=== PATIENT | female | born 1970 | race Caucasian/White ===

== ENCOUNTER → 2017-07-06 | Outpatient (CLI) | payer OTHER | LOC: FIMAGING 15:29 | PROVIDERS: ATTEND Obstetrics & Gynecology | DX: Z12.31 Encounter for screening mammogram for malignant neoplasm of breast (principal) | CPT/HCPCS: G0202 ==

== ENCOUNTER → 2018-08-04 | Outpatient (CLI) | payer OTHER | LOC: FIMAGING 15:05 | PROVIDERS: ATTEND Obstetrics & Gynecology | DX: Z12.31 Encounter for screening mammogram for malignant neoplasm of breast (principal); R92.0 Mammographic microcalcification found on diagnostic imaging of breast ==

== ENCOUNTER → 2018-08-16 | Outpatient (CLI) | payer OTHER | LOC: FIMAGING 08:59 | PROVIDERS: ATTEND Obstetrics & Gynecology | DX: R92.0 Mammographic microcalcification found on diagnostic imaging of breast (principal) ==

== ENCOUNTER 2019-01-02 07:07 | Observation (INO) | payer OTHER ==
[2019-01-02] MEDS ORDERED: NS 1,000 ML IV ONE (07:10)
[2019-01-02 07:53] LABS: PLATELET COUNT 304 10^3/uL (150-400)
--- NOTE | 2019-01-02 08:10 | PDANEPAE ---
ANE History of Present Illness pvc ep ANE Past Medical History - Cardiovascular History Hx Hypertension: No Hx Arrhythmias: Yes Hx Chest Pain: No Hx Coronary Artery / Peripheral Vascular Disease: No Hx CHF / Valvular Disease: No Hx Palpitations: No - Pulmonary History Hx COPD: No Hx Asthma/Reactive Airway Disease: No Hx Recent Upper Respiratory Infection: No Hx Oxygen in Use at Home: No Hx Sleep Apnea: No - Neurologic History Hx Cerebrovascular Accident: No Hx Seizures: No Hx Dementia: No - Endocrine History Hx Diabetes: No Hypothyroid: No Hyperthyroid: No Obesity: no - Renal History Hx Renal Disorders: No - Liver History Hx Hepatic Disorders: No - GI History GERD: mild Hx Gastrointestinal Disorders: No ANE Review of Systems Review of Systems: - Exercise capacity Exercise capacity: >=4 METS ANE Patient History - Allergies Allergies/Adverse Reactions: Penicillins Allergy (Verified 12/26/18 11:41) Rash - Home Medications Home medications: home medication list seen and reviewed Home Medications: ALPRAZolam [Xanax 0.25 MG (*)] 0.125 mg PO DAILY PRN 12/26/18 [Last Taken Unknown] Acetaminophen [Tylenol 325mg (*)] 325 mg PO DAILY PRN 12/26/18 [Last Taken 01/01] Herbals/Supplements -Info Only 1 each PO DAILY 12/26/18 [Last Taken Unknown] Multivitamins [Multivitamin (*)] 1 each PO DAILY 12/26/18 [Last Taken 01/01/19] Norethindrone-E.estradiol-Iron [Blisovi Fe 1.5-30 Tablet] 1 each PO HS 12/26/18 [Last Taken 01/02/19] Ranitidine HCl [Zantac 75] 75 mg PO DAILY PRN 12/26/18 [Last Taken Unknown] Verapamil ER [Calan SR/ER 180MG (*)] 180 mg PO HS 12/26/18 [Last Taken 12/27/18] Vitamin B Complex [Vitamin B Complex (OTC)] 1 each PO DAILY 12/26/18 [Last Taken 01/01/19] - NPO status NPO Status: no food or drink >8 hours - Smoking Hx Smoking Status: Never smoked ANE Labs/Vital Signs - Labs Result Diagrams: 01/02/19 07:03 01/02/19 07:25 - Vital Signs Height: 167.64 cm Weight: 61.235 kg ANE Physical Exam - Airway Mallampati Score: Class 2 Mouth exam: normal dental/mouth exam - Pulmonary Pulmonary: no respiratory distress - Cardiovascular Cardiovascular: regular rate and rhythym - ASA Status ASA Status: II ANE Anesthesia Plan Anesthesia Plan: general endotracheal anesthesia
[2019-01-02 08:16] LABS: INR 0.94 (0.83-1.16); PROTIME(PATIENT) 12.2 SEC (12.0-15.0)
[2019-01-02] MEDS ORDERED: LIDOCAINE 1% 300 MG/30 ML SDV ONE (08:16)
[2019-01-02] MEDS ORDERED: HEPARIN 10,000 UNIT/10 ML MDV (1,000 UNIT/ML) ONE ×2 (08:16→10:30)
[2019-01-02] MEDS ORDERED: BUPIVACAINE 0.75% 10 ML SDV ONE (08:17)
[2019-01-02] MEDS ORDERED: ISOPROTERENOL HCL/D5W 0.2 MG/50 ML BAG IV ONE (08:17)
[2019-01-02] MEDS ORDERED: PROPOFOL/EMULSION 500 MG/50 ML BOTTLE IV ONE ×5 (08:22→11:42)
[2019-01-02] MEDS ORDERED: SUCCINYLCHOLINE CHLORIDE 200 MG/10 ML SYR IVP ONE (08:27)
[2019-01-02] MEDS ORDERED: ROCURONIUM 100 MG/10 ML VIAL ONE (08:27)
--- NOTE | 2019-01-02 08:36 | PDGENHP ---
History & Physical Chief Complaint: High-frequency PVCs History of Present Illness: High-frequency PVCs, failed medical management with Metoprolol and Verapamil Relevant Physical Exam: General: A&Ox4, no apparent distress. Respiratory: CTA. Cardiac: Regular rate, PVCs, S1, S2. Extremities: Pulses 2+ bilaterally, no edema Cardiorespiratory Assessment: Proceed with PVC ablation as planned for today. PVCs likely originating from LV posterior fascicle. Risks and benefits reviewed in detail with patient and , Shiv
[2019-01-02] MEDS ORDERED: HEPARIN/DEXTROSE 25,000 UNIT/500 ML BAG ONE (09:21)
[2019-01-02] MEDS ORDERED: ePHEDrine SULFATE 25 MG/5 ML SYR ONE (10:46)
[2019-01-02] MEDS ORDERED: PHENYLEPHRINE HCL 100 MCG/ML SYR ONE ×2 (10:57→12:14)
[2019-01-02] MEDS ORDERED: ROCURONIUM 50 MG/5 ML VIAL ONE (11:01)
[2019-01-02] MEDS ORDERED: PROTAMINE SULFATE 50 MG/5 ML VIAL IVP ONE (12:37)
[2019-01-02] MEDS ORDERED: SUGAMMADEX SODIUM 200 MG/2 ML VIAL IVP ONE (12:40)
[2019-01-02] MEDS ORDERED: NALOXONE HCL 0.4 MG/ML INJ IVP PRN (13:17)
--- NOTE | 2019-01-02 13:17 | POSTANESTH ---
Post Anesthetic Evaluation Cardiovascular Status: Normal, Stable Respiratory Status: Normal, Stable Level of Consciousness/Mental Status: Can Participate in Eval Pain Control: Adequate, Prn Tx Ordered Nausea/Vomiting Control: Adequate, Prn Tx Ordered Complications Possibly Related to Anesthesia: None Noted
--- NOTE | 2019-01-02 13:57 | CPEKG ---
Test Reason : OPEN Blood Pressure : / mmHG Vent. Rate : 066 BPM Atrial Rate : 065 BPM P-R Int : 151 ms QRS Dur : 085 ms QT Int : 447 ms P-R-T Axes : 081 049 034 degrees QTc Int : 469 ms Sinus rhythm Ventricular trigeminy Confirmed by Bulmaro Mccloud ([id number]) on 01/02/2019 1:57:11 PM Referred By: Fermín Burleson Confirmed By:Bulmaro Mccloud
--- NOTE | 2019-01-02 15:14 | EPPROC ---
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 The right clavicular region, right groin, and left groin area were prepped and draped in the usual sterile manner. Appropriate non-invasive blood pressure, pulse oximetry and end-tidal CO2 monitoring was established. Anesthesiologist Dr. Beata Gilman administered propofol sedation. All catheters were placed percutaneously using the modified Seldinger technique , and advanced into position under fluoroscopic guidance. One #7 [place] deflectable octapolar electrode catheter was advanced to the His-bundle position via the left femoral vein (2mm spacing; except the proximal ring which was 25cm from the tip used for unipolar recordings). A ICE catheter was placed via LFV into RA and RV. Transseptal puncture was performed under hemodynamic, fluoro and ICE guidance using standard technique. SL1 and then Mobi sheath were placed into LA and then LV. 3D map of LV, RV and papillary muscles made using ICE catheter and mapping catheter. Programmed stimulation was performed from the right atrium, right ventricle and CS (left atrium). Parahisian pacing demonstrated all retrograde conduction over the AV node. The patient arrived to the electrophysiology laboratory in normal sinus rhythm with frequent PVC. PVC morphology RBBB, superior axis. PVC frequency increased with phenylephrine boluses. A 3.5 mm STSF Navistar ablation catheter with a magnetic sensor for the Carto 3D electroanatomic mapping system was used for mapping. Mapping (during PVC) of LV during PVC identified earliest activation in the distal posterior fascicular area. Ventricular activation began 30 ms before the onset of the QRS complex with sharp negative deflection in the unipolar electrode, fascicular potential was seen. RF ablation at this site caused automaticity and elimination of PVC. Further RF applications were delivered to this area. Observation for 45 minutes after the application of radiofrequency current was performed during isoproterenol administration at graded doses upto 2 mcg/min, and following discontinuation of isoproterenol and also with phenylephrine boluses. No spontaneous ventricular extra systoles of the primary pattern seen prior to ablation were induced spontaneously or with ventricular burst pacing. There was no ventricular tachycardia inducible. Rare ventricular extra systoles with different patterns were observed but these were due to catheter manipulation or mechanical contact. The catheters were removed. Protamine was administered. Vascular access sheaths were removed after pursestring suture was placed. The patient was transferred to the cardiovascular holding area in stable condition. There were no apparent complications. CONCLUSIONS: 1. Premature ventricular beats originating from the distal left posterior fascicular area. 2. Successful catheter mediated ablation of the premature ventricular beats. 3. No apparent complications. Patient Problems: Problems Problem Status Onset PVC (premature ventricular contraction) Acute
--- NOTE | 2019-01-02 17:13 | CPEKG ---
Test Reason : OPEN Blood Pressure : / mmHG Vent. Rate : 066 BPM Atrial Rate : 033 BPM P-R Int : 121 ms QRS Dur : 085 ms QT Int : 449 ms P-R-T Axes : 043 049 024 degrees QTc Int : 471 ms Sinus rhythm Minimal ST depression, inferior leads ST/T wave changes are new in comparison to prior ECG Confirmed by Bulmaro Mccloud ([id number]) on 01/02/2019 5:12:21 PM Referred By: Fermín Burleson Confirmed By:Bulmaro Mccloud
[2019-01-03] MEDS ORDERED: ASPIRIN 81 MG CHEWABLE TAB PO SCH (09:00)
--- NOTE | 2019-01-03 11:21 | ECHO ---
[email or web address] [address] [address] Main: [phone] Echocardiography Examination Transthoracic Name: JESSI RAE MR#: [id number] Study Date: 01/03/2019 Study Time: 08:16 AM Date of : 1970 Age: 48 year(s) Height: 167.6 cm (66 in.) Weight: 61.24 kg (135 lb.) BSA: 1.69 m2 Gender: Female Examination: Echo Contrast: Image Quality: Adequate Rhythm: Heart Rate: BP: 104 mmHg/70 mmHg Indication: F/U Post EP Study Procedure Staff Referring Physician: Oracle Soa Architect: Liliana Oh [facility] Reading Physician: Fermín Burleson MD Requesting Provider: Ordering Physician: Fermín Burleson MD Indication: F/U Post EP Study Measurements Chambers AV/MV Label Value Normal Value Label Value Normal Value IVSd, 2D 0.8 cm (0.6cm - 1.1cm) AV PGmax 8 mmHg LVDd, 2D 4.8 cm (3.9cm - 5.3cm) AV PGmean 5 mmHg LVDs, 2D 3.1 cm (2.1cm - 4cm) AV Vmax 1.42 m/s LVEF, 2D 64 % (54% - 74%) ALICE D (continuity eq. 1.9 cm2 LVEF, BP 63 % (55% - 70%) VTI) LVEF, MOD2 63 % (55% - 70%) MV A Vmax 0.55 m/s LVEF, MOD4 63 % (55% - 70%) MV DT 225 ms LVOT PGmean 3 mmHg MV E' lateral 0.14 m/s LVOT Vmean 0.84 m/s MV E' mean 0.12 m/s LVOTd 1.8 cm (1.8cm - 2cm) MV E' septal 0.1 m/s LVPWd, 2D 0.9 cm MV E Vmax 0.97 m/s RVDd, 2D 2.7 cm (1.9cm - 3.8cm) MV E/A 1.76 LADs, 2D 3.2 cm (2.7cm - 3.8cm) MV E/E' lateral 6.9 LAESV index, BP 27.2 ml/m2 MV E/E' mean 8.08 RA Area 11 cm2 MV E/E' septal 9.8 (0.5 - 1.7) Additional Vessels MV PHT 0.07 s Label Value Normal Value MV PHT 70 ms AoAsc 2.6 cm MVA PHT 3.1 cm2 AoRoot, 2D 2.9 cm (1.4cm - 2.6cm) TV/PV Patient: JESSI RAE Study Date: 01/03/2019 Page 1 of 3 08:16 AM IVC 1.3 cm (1.2cm - 2.3cm) Label Value Normal Value RA Pressure 5 mmHg RVSP 34 mmHg TR Pmax 29 mmHg TR Vmax 2.7 m/s PV PGmax 3 mmHg PV Vmax, Caliper 0.92 m/s (0.6m/s - 0.9m/s) Conclusions Left Ventricle: Normal global systolic left ventricular function. Mitral Valve: Mild mitral regurgitation. Mild mitral valve prolapse. Tricuspid Valve: Mild tricuspid regurgitation. Pericardium: No pericardial effusion. Findings Left Ventricle: Left ventricle is normal in size. Normal global systolic left ventricular function. The ejection fraction, measured by Simpsons method, is 63 %. EF range is estimated at 60 % - 65 %. Left ventricle wall thickness is normal. There are no regional wall motion abnormalities. Left ventricular diastolic function parameters are normal. IVS: The septum is intact. Right Ventricle: Normal size right ventricle. Right ventricular systolic function is normal. Left Atrium: The left atrium is normal in size. IAS: Normal appearing atrial septum. Right Atrium: The right atrium is normal in size. Mitral Valve: Mild mitral regurgitation. No mitral valve stenosis. Mild mitral valve prolapse. Aortic Valve: Aortic leaflets are structurally normal. Trivial aortic regurgitation is present. There is no aortic stenosis. Tricuspid Valve: Tricuspid valve leaflets are structurally normal. Mild tricuspid regurgitation. No tricuspid valve stenosis. Right Ventricular systolic pressure is measured at 34 mmHg. Pulmonary artery pressure normal. Pulmonic Valve: Pulmonic leaflets exhibit normal cuspal separation. No pulmonic valve regurgitation is evident. There is no pulmonic valve stenosis. Aorta: The aorta is normal. The aortic root size in 2D measures 2.9 cm. The ascending aorta measures 2.6 cm. Aorta Measurements AoRoot, 2D is 2.9 cm. Patient: JESSI RAE Study Date: 01/03/2019 Page 2 of 3 08:16 AM Pulmonary Artery: The pulmonary artery morphology appears normal. IVC: The inferior vena cava is normal in size. The inferior vena cava is normal in size and course. Pericardium: No pericardial effusion. No pleural effusion present. Exam Details Procedure Ordered: Echo Procedure Status: Routine study Image Quality: Adequate Facility Location: Cardiac Echo 1 (No Signature Object) Patient: JESSI RAE Study Date: 01/03/2019 Page 3 of 3 08:16 AM [id number]
--- NOTE | 2019-01-03 12:42 | ASMTLACE ---
LACE Length of stay for Answers: Less than 1 day current admission Acuity / Level of Answers: No Care: Did the patient have an inpatient admission? Comorbidities - select Answers: Coronary Artery Disease all that apply # of Emergency department Answers: 0 visits in the last 6 months Score: 2 Date Signed: 01/03/2019 12:42 PM Electronically Signed By:NICHOLE Barone
--- NOTE | 2019-01-03 12:42 | ASDISCHSUM ---
Discharge Information Plan Status:Home with No Needs Medically Cleared to Leave: Discharge Date: D/C Disposition: ADT D/C Disposition:Home, Routine, Self-Care Projected Discharge Date:01/03/2019 12:00 AM Transportation at D/C: Discharge Delay Reason: Follow-Up Date:01/03/2019 12:00 AM Discharge Slot: Final Diagnosis: Placement Information Patient Contact Information Contact Name:SHEILA Relationship: Address:[address] [place] [address] Work Phone: City:[facility] Phone: State/Zip Code:[place] [address] Email: Financial Information Financial Class:O and PPO Plans Primary Plan Desc:[employer] Primary Plan Number:[id number] Secondary Plan Desc: Secondary Plan Number: Assessment Information Case Management Discharge Plan Note Case Management Discharge Discharge Order Complete? Answers: Yes Patient to Obtain Answers: via Family Medications Transportation Arranged Answers: Family/Friends Family Notified Answers: Yes Discharge Comments Notes: Pt is a 48 yo female in for PVC ablation. Lives with . Is getting discharged independently. no therapies ordered. Pt will follow-up with outpatient care and recommended. No CM needs identified. Family to transport. Date Signed: 01/03/2019 12:40 PM Electronically Signed By:NICHOLE Barone Intervention Information Intervention Type:*Incorrect Registration Date of Service:01/02/2019 02:34 PM Patient Type:Inpatient Staff Member:KATHIE Balbuena, Judy Hours: Discipline: Severity: Comment:
[2019-01-03 12:52] VITALS: BP 119/94
--- NOTE | 2019-01-03 12:54 | CPEKG ---
Test Reason : OPEN Blood Pressure : / mmHG Vent. Rate : 062 BPM Atrial Rate : 062 BPM P-R Int : 111 ms QRS Dur : 088 ms QT Int : 446 ms P-R-T Axes : 049 046 034 degrees QTc Int : 453 ms Sinus rhythm Minimal ST depression to the inferior leads is still noted Confirmed by Bulmaro Mccloud ([id number]) on 01/03/2019 12:54:44 PM Referred By: Fermín Burleson Confirmed By:Bulmaro Mccloud
--- NOTE | 2019-01-03 17:18 | GDS ---
[f rep st] DISCHARGE SUMMARY SUPERVISING CATERPILLAR MECHANIC: Fermín Burleson MD ADMISSION DIAGNOSIS: Premature ventricular contractions, high frequency. DISCHARGE DIAGNOSIS: Premature ventricular beats arising from the left posterior fascicle, status post successful catheter-mediated ablation. PROCEDURES PERFORMED DURING HOSPITALIZATION: 1. Electrocardiogram. 2. Echocardiogram. 3. Electrophysiology study. 4. PVC ablation. HOSPITAL COURSE: Patient presented 01/02/2019, for a PVC ablation in the setting of symptomatic, high frequency PVCs. She underwent successful catheter- mediated ablation of her premature ventricular beats originating from the distal left posterior fascicular area, and she had no intra-procedure complications. She has done very well overnight without recurrence of targeted PVCs noted on telemetry. She has been up ambulating around her room this morning without issue, and she is appropriate and stable for discharge home today. PHYSICAL EXAMINATION: GENERAL: Alert and oriented x4. No apparent distress. VITAL SIGNS: Blood pressure 114/44, heart rate 75, respiratory rate 20, SpO2 94 % on room air, temp 36.5 degrees Celsius. RESPIRATORY: Lungs are clear to auscultation without adventitious breath sounds. CARDIAC: Normal S1 and S2. No S3, S4, or murmurs. Rhythm is regular. ABDOMEN: Normoactive bowel sounds times all 4 quadrants. No masses or tenderness. Soft to palpation. SKIN: [place], warm, dry, without cyanosis, clubbing, or peripheral edema. EXTREMITIES: Bilateral pursestring sutures removed intact without evidence of hematoma, redness, oozing, swelling, or warmth. Pulses are 2+ bilaterally. No edema. LABORATORY STUDIES: Drawn on today: CBC relatively stable compared to preprocedure with mildly elevated WBCs at 13.87. Troponin is 0.340, this is to be expected in the postprocedure setting. BMP is stable compared to pre procedure. Procedures: Electrophysiology study and PVC ablation as mentioned above. Echocardiogram this morning demonstrates normal left ventricular systolic function without any wall motion abnormalities or evidence of pericardial effusion. Electrocardiogram this morning demonstrates normal sinus rhythm without new MI interval abnormalities or significant ST changes. DISCHARGE DISPOSITION: Patient will be discharged home in stable condition. She is under activity restrictions as below. DISCHARGE MEDICATIONS: Please see discharge medication reconciliation sheet for full details. Place please note that patient has been started on aspirin 81 mg daily for 6 weeks post procedure. DISCHARGE INSTRUCTIONS: Post PVC ablation instructions reviewed with patient and her in detail. 1. We discussed activity restrictions, including lifting no more than 10 pounds and avoidance of submerged bathing for 10 days. 2. She will get up and walk around every 45 minutes for 45 days. 3. She will avoid unpressurized air travel or scuba diving for the next 6 months, and we will present to our clinic for an echocardiogram prior to engaging in either of these activities. 4. We reviewed bleeding precautions, medication compliance, monitoring for signs and symptoms of infection, and monitoring for sustained arrhythmia. At the time of discharge, patient verbalizes understanding of all discharge instructions without questions or concerns. She has a followup visit scheduled within 4 weeks with [facility], and she will contact us if she experiences any new or concerning symptoms prior to her upcoming visit. Time spent on discharge greater than 30 minutes. /[id number]/MODL MTDD
== END 2019-01-03 12:57 | disposition home or self-care (01) ==
LOC: FCATH 07:07 → F2N 13:00 → INTOOBSV 13:00
PROVIDERS: ADMIT Internal Medicine Cardiovascular Disease; ATTEND Internal Medicine Cardiovascular Disease
PROC: 4A023FZ Measurement of Cardiac Rhythm, Percutaneous Approach (ICD-10-PCS; principal; 2019-01-02)
PROC: B246ZZZ Ultrasonography of Right and Left Heart (ICD-10-PCS; principal; 2019-01-02)
PROC: 02583ZZ Destruction of Conduction Mechanism, Percutaneous Approach (ICD-10-PCS; principal; 2019-01-02)
DX: I49.3 Ventricular premature depolarization (principal)
CPT/HCPCS: 93005; 93306; 93623; 93654; 93662; C1893; G0378; C1731; C1732; C1759; C1766; J0330; J1644; J2370; J2704; J2720

== ENCOUNTER → 2019-02-22 | Outpatient (CLI) | payer OTHER | LOC: FIMAGING 15:00 | PROVIDERS: ATTEND Obstetrics & Gynecology | DX: R92.8 Other abnormal and inconclusive findings on diagnostic imaging of breast (principal) ==

== ENCOUNTER → 2019-03-01 | Outpatient (CLI) | payer OTHER ==
[~2019-03-01] MED LIST: BUPIVACAINE 0.5% 30 ML SDV ONE; LIDOCAINE 1% 300 MG/30 ML SDV ONE
== END ==
LOC: FIMAGING 07:07
PROVIDERS: ATTEND Obstetrics & Gynecology
PROC: 0HBU3ZX Excision of Left Breast, Percutaneous Approach, Diagnostic (ICD-10-PCS; principal; 2019-03-01)
DX: C50.112 Malignant neoplasm of central portion of left female breast (principal); Z17.0 Estrogen receptor positive status [ER+]

== ENCOUNTER → 2019-03-20 | Outpatient (CLI) | payer OTHER | LOC: FIMAGING 08:24 ==

== ENCOUNTER → 2019-03-28 | Outpatient (CLI) | payer OTHER | LOC: FIMAGING 07:05 ==

== ENCOUNTER → 2019-04-12 | Outpatient (CLI) | payer OTHER | LOC: FIMAGING 07:33 ==